=== PATIENT | female | born 1975 | race Caucasian/White ===

== ENCOUNTER → 2020-03-11 | Outpatient (CLI) | payer OTHER ==
--- NOTE | 2020-03-11 12:47 | Diagnostic Imaging Report ---
INDICATION: Low back pain. 3 views were obtained FINDINGS: The alignment is normal. The vertebral body heights are well-maintained. No spondylolysis or spondylolisthesis. No fractures are identified. Mild degenerative changes IMPRESSION: Mild lumbar spondylosis otherwise unremarkable. Dictated by: Dictated on workstation # [id number]
--- NOTE | 2020-03-11 12:48 | Diagnostic Imaging Report ---
INDICATION: Knee pain. 2 views were obtained. FINDINGS: The osseous alignment is normal. There is no acute fracture or dislocation. The soft tissues are unremarkable. IMPRESSION: No acute abnormality. Dictated by: Dictated on workstation # [id number]
== END ==
LOC: RAD 11:52
DX: Z02.71 Encounter for disability determination (principal); M25.561 Pain in right knee; M47.816 Spondylosis without myelopathy or radiculopathy, lumbar region
CPT/HCPCS: 72100; 73560